=== PATIENT | female | born 1955 | race Two or more races ===

== ENCOUNTER 2018-12-27 23:42 | Emergency (ER) | payer OTHER ==
[~2018-12-27] VITALS: Ht 160 cm; Wt 68.0 kg
[~2018-12-27 23:42] MED LIST: ACETAMINOPHEN-1 EAC1 ORAL; FOLIC ACID1 MG ORAL; GABAPENTIN100 MG ORAL; HYDROCODON-ACE1 EA15 ORAL; LEVAQUIN750 MG ORAL; LEVOTHYROXINE125 MCG ORAL; METHOTREXATE2.5 MG PO; NAPROSYN500 M1 ORAL; NORCO 5-325 TA1 EACH ORAL; PREDNISONE2.5 MG ORAL; PREDNISONE20 MG ORAL
[2018-12-28 00:15] VITALS: BP 156/75
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
[2018-12-28] MEDS ORDERED: HYDROcodone/Acetamin 5/325 tab ORAL ONE (00:30)
--- NOTE | 2018-12-28 01:04 | Diagnostic Imaging Report ---
Indication: Shoulder pain. Injury Findings: 2 views of the left humerus were obtained. There is a severe fracture of the humeral head with displacement of a part of the humeral head laterally and inferior anterior subluxation. The remainder of the humerus is unremarkable. IMPRESSION: Fracture of the humeral head with moderate displacement.
--- NOTE | 2018-12-28 01:05 | Diagnostic Imaging Report ---
Indication: Pain Forearm pain Findings: 2 views of the left forearm were obtained. No acute fractures, malalignment, erosions or periostitis are identified. Soft tissues are unremarkable. Impression: Negative for acute injury.
[2018-12-28] MEDS ORDERED: NORCO 5-325 TA1 EACH ORAL (02:03)
[2018-12-28] MEDS ORDERED: COLACE100 MG ORAL (02:03)
[2018-12-28 02:30] VITALS: BP 130/75
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
--- NOTE | 2018-12-28 11:02 | Diagnostic Imaging Report ---
Indication: left hand pain. Comparison: None Findings: 3 views of the left hand were obtained. No acute fracture is identified. The bones are osteopenic. There is moderate osteoarthrosis involving the proximal and distal interphalangeal joints of the digits characterized by joint space narrowing and fairly marked osteophyte formation. The most severe levels appear to be the third and fourth PIP joints. Generalized arthrosis noted within the carpal bones and wrist as well. IMPRESSION: No acute injury appreciated. Moderate osteoarthrosis
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
== END 2018-12-28 02:30 | disposition home or self-care (01) ==
LOC: EMR 12-28 00:15
DX: S42.292A Other displaced fracture of upper end of left humerus, initial encounter for closed fracture (principal); Y09 Assault by unspecified means; Y92.9 Unspecified place or not applicable; Z88.0 Allergy status to penicillin
CPT/HCPCS: 99284